=== PATIENT | male | born 1955 | race Caucasian/White ===

== ENCOUNTER 2024-06-01 00:36 | Inpatient (IN) | payer OTHER ==
[~2024-06-01] VITALS: Ht 170.2 cm
[2024-06-01] MEDS ORDERED: IBLOOD GLUCOSE TEST STRIP 1 EA TEST XX ONE (00:45)
[2024-06-01] MEDS ORDERED: LOSARTAN POTASS50 MG (01:05)
[2024-06-01] MEDS ORDERED: HYDROCODON-ACE1 EA14 (01:06)
[2024-06-01 01:09] LABS: BASOPHILS 0.4 % (0-2); EOSINOPHILS 2.8 % (0-6); LYMPHOCYTES 29.2 % (24-44); MCH 29.8 (27-36); MCHC 34.7 g/dl (30-36); MCV 85.7 fl (81-99); NEUTROPHILS 61.6 % (39-80); PLATELET COUNT 170 K/uL (140-440); RBC 5.37 M/ul (4.3-5.7); RDW 13.6 (10.5-15.0)
[2024-06-01 01:21] LABS: INR 1.09 (0.80-1.30); PROTIME 13.4 Sec (11.2-14.2)
[2024-06-01 01:28] LABS: ALBUMIN 3.4 g/dL (3.4-5.0); ALBUMIN/GLOBULIN RATIO 1.13 (1.1-2.4); ANION GAP 12.5 (7-21); BILIRUBIN, TOTAL 0.7 ng/dL (0.2-1.0); BUN/CREATININE RATIO 14.91 (6.0-28.6); CALCIUM 8.4 mg/dL (8.5-10.1); CREATININE, SERUM 1.14 mg/dL (0.70-1.30); POTASSIUM 3.5 mmol/L (3.5-5.1); PROTEIN, TOTAL 6.4 g/dL (6.4-8.2)
[2024-06-01] MEDS ORDERED: ACETAMINOPHEN 325 MG TAB PO PRN (02:00)
[2024-06-01] MEDS ORDERED: SODIUM CHLORIDE 0.9% 1,000 ML IV SCH (02:00)
[2024-06-01] MEDS ORDERED: MORPHINE SULFATE 4 MG/ML VIAL IV PRN (02:00)
[2024-06-01] MEDS ORDERED: ondansetron HCL 4 MG/2 ML VIAL IV PRN (02:00)
--- NOTE | 2024-06-01 03:20 | NUR ---
bedside report received from ed rn barbara. pt up stand pivot to ms bed, voided via urinal. pt arrived to floor at 0330, bedside report given to magali juarez. primary rn to take over pt care, call light in reach.
[2024-06-01 03:42] VITALS: BP 146/90
--- NOTE | 2024-06-01 03:45 | NUR ---
ASSESSMENT AND ADDMISSION DONE. NIH DONE WITH A RESULTS OF 3. TELE #2 PLACED ON pt. CPOX PLACED ON pt. pt DENIES ANY OTHER NEEDS AT THIS TIME. CALL LIGHT WITHIN REACH. URINAL GIVEN.
[2024-06-01 05:53] VITALS: BP 144/77
--- NOTE | 2024-06-01 05:57 | NUR ---
IN ROOM, IV FLUIDS INFUSING DIRECTED, IV SITE WNL. PT UP SBA AND VOIDED, URINE SAMPLE COLLECTED AND SENT TO LAB. PRIMARY RN ALSO IN ROOM. VS AND I&O'S COLLECTED, PT REMAINS NPO, EDUCATED AND QUESTIONS ANSWERED. BED ALARM ON AND CALL LIGHT IN REACH.
[2024-06-01 06:05] LABS: BASOPHILS 0.4 % (0-2); HEMATOCRIT 50.1 % (35.0-50.0); HEMOGLOBIN 17.3 g/dL (12.0-18.0); LYMPHOCYTES 20.8 % (24-44); MCH 29.9 (27-36); MCHC 34.5 g/dl (30-36); MCV 86.5 fl (81-99); MONOCYTES 4.7 % (0-12); NEUTROPHILS 73.1 % (39-80); PLATELET COUNT 184 K/uL (140-440); RBC 5.79 M/ul (4.3-5.7); RDW 13.9 (10.5-15.0)
[2024-06-01 06:07] LABS: BILIRUBIN, URINE NEGATIVE (negative); BLOOD/HGB, URINE NEGATIVE (Negative); KETONE, URINE NEGATIVE (Negative); LEUK ESTERASE, URINE NEGATIVE (negative); NITRITE, URINE NEGATIVE (negative); PH, URINE 7.5 (5-7)
[2024-06-01 06:23] LABS: AMPHETAMINES, URINE NEGATIVE (NEGATIVE); BARBITURATES, URINE NEGATIVE (NEGATIVE); BENZODIAZEPINE, URINE NEGATIVE (NEGATIVE); BUPRENORPHINE, URINE NEGATIVE (NEGATIVE); CANNABINOID, URINE NEGATIVE (NEGATIVE); COCAINE, URINE NEGATIVE (NEGATIVE); ECSTASY, URINE NEGATIVE (NEGATIVE); FENTANYL, URINE NEGATIVE (NEGATIVE); METHADONE, URINE NEGATIVE (NEGATIVE); OPIATES, URINE POSITIVE (NEGATIVE); OXYCODONE, URINE NEGATIVE (NEGATIVE); PHENCYCLIDINE, URINE NEGATIVE (NEGATIVE)
[2024-06-01 06:28] LABS: ALBUMIN 3.7 g/dL (3.4-5.0); ALBUMIN/GLOBULIN RATIO 1.06 (1.1-2.4); ANION GAP 12.6 (7-21); BILIRUBIN, TOTAL 0.7 ng/dL (0.2-1.0); BUN/CREATININE RATIO 14.41 (6.0-28.6); CALCIUM 8.9 mg/dL (8.5-10.1); CREATININE, SERUM 1.11 mg/dL (0.70-1.30); MAGNESIUM 2.2 mg/dL (1.8-2.4); POTASSIUM 3.6 mmol/L (3.5-5.1); PROTEIN, TOTAL 7.2 g/dL (6.4-8.2)
[2024-06-01 06:33] VITALS: BP 144/77
[2024-06-01] MEDS ORDERED: IBLOOD GLUCOSE TEST STRIP 1 EA TEST VI SCH ×2 (07:00→08:00)
--- NOTE | 2024-06-01 07:54 | NUR ---
Pt report received from SU Pimentel at 0700 hours. Pt is A&O resting supine in bed, television on. Denies needs at this time. Side rails up x4, call light in reach, white board updated.
[2024-06-01] MEDS ORDERED: ASPIRIN 81 MG CHEW PO SCH ×2 (08:00→08:22)
--- NOTE | 2024-06-01 08:22 | NUR ---
ALERT AND ORIENTED IN BED. STATES HE LIVES IN SINGLE LEVEL HOME WITH HIS , UMA. DEMOGRAPHICS OBTAINED FROM PATIENT. HIS PCP IS DR. KAROLINA HERNÁNDEZ IN [place], [place]. HE HAS NO DME AT BASELINE. HE DRIVES. DENIES FINANCIAL CONCERNS. STATES HE AND HIS ONLY HAVE MORTGAGE AND MONTHLY UTILITIES, NO OTHER DEBTS, SO THEY HAVE NO FINANCIAL CONCERNS. STATES HE HAS NO CONCERNS ABOUT RETURNING HOME AT THIS TIME, PENDING PT/OT EVALUATIONS TO VERIFY NEEDS AT TX.
--- NOTE | 2024-06-01 08:32 | NUR ---
Patient was awake and watching TV. Q6 blood sugar checked and reported to SU Abbasi. No cares were requested at the time.
[2024-06-01] MEDS ORDERED: HYDROCODON-ACE1 EAC8 PO (08:37)
[2024-06-01] MEDS ORDERED: LOSARTAN-HCTZ1 EAC2 PO (08:38)
[2024-06-01 08:43] LABS: CHOLESTEROL/HDL RATIO 2.8
[2024-06-01] MEDS ORDERED: CLOPIDOGREL BISULFATE 75 MG TAB PO SCH ×2 (09:00)
[2024-06-01] MEDS ORDERED: ENOXAPARIN SODIUM 40 MG/0.4 ML SYR SUB-Q SCH (09:00)
--- NOTE | 2024-06-01 09:15 | NUR ---
Speech therapist in with pt at about 0900 hours. Pt now up to void in bathroom. Echo will be done in about 20 minutes, then pt to MRI afterwards. MRI screening questionnaire complete.
[2024-06-01 09:19] VITALS: BP 146/90
--- NOTE | 2024-06-01 09:50 | NUR ---
Echo in with pt
--- NOTE | 2024-06-01 10:07 | NUR ---
MRI personnel in with pt to transfer to MRI. Pt IV saline locked at this time. Pt stood and transferred from bed to wheelchair with SBA only, reports some dizziness with standing. No-slip socks on.
--- NOTE | 2024-06-01 10:50 | NUR ---
REPORT RECEIVED FROM MATT BLUE. PATIENT RESTING IN RECLINER. DENIES ANY NEEDS AT THIS TIME. CALL LIGHT WITHIN REACH.
[2024-06-01 10:53] VITALS: BP 146/90
--- NOTE | 2024-06-01 11:06 | NUR ---
Patient returned from imaging. Tele battery replaced and leads reattached.
[2024-06-01] MEDS ORDERED: VITAMIN E400 UNI1 PO (11:21)
[2024-06-01] MEDS ORDERED: CENTRUM SILVER1 EAC3 PO (11:21)
[2024-06-01] MEDS ORDERED: VITAMIN D325 MCG PO (11:21)
[2024-06-01] MEDS ORDERED: VITAMIN B-121000 MCG PO (11:21)
--- NOTE | 2024-06-01 11:21 | NUR ---
MED REC COMPLETE
--- NOTE | 2024-06-01 11:45 | NUR ---
PATIENT CONTINUES TO REST IN RECLINER. DENIES ANY PAIN OR DISCOMFORT. PATIENT IS REQUESTING HIS 'S PHONE NUMBER. TAX EVALUATOR LOOKING FOR 'S PHONE NUMBER AT THIS TIME.
[2024-06-01] MEDS ORDERED: PHARMACY RENAL DOSE ADJUSTMENT 1 DOSE MISC PO SCH (12:00)
--- NOTE | 2024-06-01 12:08 | NUR ---
UR CLINICAL REVIEW: ARIS FANG, MEETS INPT FOR [facility] MEDICARE FROM OBS TO INPT 06/01/24 @ 0956 ORDER MATCHES REG NO AUTH REQUIRED PER MEDICARE RULES DC PLAN PENDING THERAPY EVALUATIONS, WOULD LIKE TO GO HOME.
--- NOTE | 2024-06-01 12:11 | NUR ---
MD IN ROOM WITH PATIENT AND AMBULING IN HATHAWAY WITH PATIENT.
[2024-06-01] MEDS ORDERED: CLOPIDOGREL75 MG PO (12:19)
[2024-06-01] MEDS ORDERED: LIPITOR40 MG PO (12:19)
[2024-06-01] MEDS ORDERED: ASPIRIN81 MG PO (12:20)
[2024-06-01] MEDS ORDERED: METFORMIN HCL500 MG PO (12:20)
--- NOTE | 2024-06-01 14:04 | NUR ---
PATIENT DISHARGED WITH . PATIENT NIH SCORE AT TIME OR DISCHARGE WAS 0. PATIENT VSS. DISCUSSED EDUCATIONS WITH PATIENT AND . IV SITE REMOVED WNL.
[2024-06-01] MEDS ORDERED: ATORVASTATIN 10 MG TAB PO SCH (17:00)
[2024-06-01] MEDS ORDERED: ATORVASTATIN 40 MG TAB PO SCH (17:00)
--- NOTE | 2024-06-02 12:05 | EKG ---
[facility] [address] [facility] [place], [place] [address] Signed Sinus rhythm with sinus arrhythmia with 1st degree AV block Otherwise normal ECG No previous ECGs available Confirmed by Hieu Celaya MD ([id number]) on 06/02/2024 12:05:36 PM Electronically Signed By: HIEU CLEAYA 06/02/24 1205 PATIENT NAME: POLALESTER HATTIE Electrocardiogram DATE OF : 55 PHYSICIAN: HIEU CELAYA REPORT #: [id number] REPORT IS CONFIDENTIAL AND NOT TO BE RELEASED WITHOUT AUTHORIZATION
== END 2024-06-01 13:55 | disposition home or self-care (01) | DRG 69 ==
LOC: ED 00:36 → MS 00:38
PROVIDERS: Family Medicine; ADMIT Internal Medicine; ATTEND Internal Medicine
DX: G45.9 Transient cerebral ischemic attack, unspecified (principal); I10 Essential (primary) hypertension; E11.40 Type 2 diabetes mellitus with diabetic neuropathy, unspecified; Z79.891 Long term (current) use of opiate analgesic; Z79.899 Other long term (current) drug therapy; E78.5 Hyperlipidemia, unspecified
CPT/HCPCS: 36415; 70450; 70496; 70498; 70551; 71045; 80053; 80061; 80307; 81003; 83036; 83735; 84484; 85025; 85610; 85730; 92610; 93005; 93010; 93306; 96372; 97161; 97165; 97535; 99285-25; A9270; G0378; J1650; J7030; Q9967

== ENCOUNTER 2024-08-16 09:53 | Day surgery (SDC) | payer MEDICARE ==
[2024-08-10 09:23] VITALS: BP 112/78
[~2024-08-16] VITALS: Ht 170.2 cm; Wt 96.4 kg
[~2024-08-16 09:53] MED LIST: ASPIRIN81 MG PO; CENTRUM SILVER1 EAC3 PO; CLOPIDOGREL75 MG PO; HYDROCODON-ACE1 EA14; HYDROCODON-ACE1 EAC8 PO; IBLOOD GLUCOSE TEST STRIP 1 EA TEST VI PRN; LACTATED RINGER'S 1,000 ML IV SCH; LIDOCAINE HCL 1% 5 ML SDV INJ ONE; LIPITOR40 MG PO; LOSARTAN POTASS50 MG; LOSARTAN-HCTZ1 EAC2 PO; METFORMIN HCL500 MG PO; VITAMIN B-121000 MCG PO; VITAMIN D325 MCG PO; VITAMIN E400 UNI1 PO
[2024-08-16 10:15] VITALS: BP 141/77
--- NOTE | 2024-08-16 11:47 | NUR ---
1105-PT UP TO RESTROOM. 1107-PT BACK TO ROOM. PT UPDATED ON SURGICAL WAIT TIME. NO OTHER NEEDS AT THIS TIME. CALL LIGHT WITHIN REACH.
--- NOTE | 2024-08-16 13:28 | NUR ---
LE 1306-PT UP TO RESTROOM. LE 1309-PT BACK TO ROOM. NO OTHER NEEDS AT THIS TIME. CALL LIGHT WITHIN REACH.
[2024-08-16] MEDS ORDERED: fentaNYL citrate 100 MCG/2 ML VIAL ONE (13:33)
[2024-08-16] MEDS ORDERED: LIDOCAINE HCL 2% 5 ML SDV ONE (13:33)
[2024-08-16] MEDS ORDERED: propofoL 200 MG/20 ML VIAL ONE (13:33)
--- NOTE | 2024-08-16 15:16 | NUR ---
08/16/24 1516 Alida Pierce 1438 PT ARRIVED IN PACU SLEEPY. ABD SOFT AND PASSING FLATUS. 1500 RESTING. REU. 151 AWAKENS TO VERBAL STIMULI. SITTING UP IN BED SIPPING ON WATER. 1513 GLASSES AND HEARING AIDES RETURNED TO PT.
[2024-08-16 15:17] VITALS: BP 119/85
--- NOTE | 2024-08-16 22:53 | EKG ---
[facility] [address] [place] [address] Signed Normal sinus rhythm Normal ECG When compared with ECG of 01-JUN-2024 01:00, No significant change was found Confirmed by Augustine Pepe MD () on 08/16/2024 10:53:17 PM Electronically Signed By: AUGUSTINE PEPE MD 08/16/24 2253 PATIENT NAME: LESTER ESCALONA Electrocardiogram DATE OF : 55 PHYSICIAN: AUGUSTINE PEPE MD REPORT #: [id number] REPORT IS CONFIDENTIAL AND NOT TO BE RELEASED WITHOUT AUTHORIZATION
--- NOTE | 2024-08-17 06:37 | OR ---
[facility] [address] [place], [place] [address] Signed DATE OF OPERATION: 08/16/2024 SURGEON: Tres Mercedes MD PREOPERATIVE DIAGNOSES: 1. Gastroesophageal reflux disease with heartburn. 2. Personal history of colonic polyps. 3. Hemorrhoids. POSTOPERATIVE DIAGNOSES: 1. Mild gastroduodenitis. 2. Mild distal gastritis. 3. Small hiatal hernia. 4. GE junction at 32 cm. 5. Minimal sigmoid diverticulosis. 6. Minimal to moderate internal external hemorrhoids. 7. 4 mm polyp at distal right colon. 8. 5 mm polyp at 50 cm in left colon. PROCEDURES: 1. EGD with CLOtest and biopsy of the duodenum, pyloric bulb, antrum and GE junction. 2. Colonoscopy with hot biopsy. ESTIMATED BLOOD LOSS: None. INDICATIONS: Damian is a 69-year-old gentleman asked to see me for both upper and lower endoscopy. He said he went through several colonoscopies when he lived in [place], [place]. He said he has had polyps removed on several occasions. He has been told to follow up every 3 to 5 years. He told me he has hemorrhoids that bother him once in a while. He does not recognize the term diverticulosis. He said he has no lower GI complaints. He said his memory is not the best having been through the [facility]. We do not have any records from [facility]. He also mentions acid reflux and heartburn. He said maybe many years ago he had an upper endoscopy, but he is not sure. His primary care provider asked him to see me with respect to the above. I had given him pamphlets on both upper and lower endoscopy. We had reviewed the nature of the two tests in the office. There is risk including, but not limited to gas bloating, crampy abdominal pain, bleeding, perforation requiring surgery, and missed diagnosis. We also reviewed the written instructions for our bowel prep line by line. Also, he had a TIA in May and other medical issues Electronically Signed By: TRES MERCEDES MD 08/17/24 0637 PATIENT NAME: DAMIAN ESCALONA OPERATIVE REPORT DATE OF : 55 REPORT #: [id number] PHYSICIAN: TRES MERCEDES MD PCP: ANURAG HERNÁNDEZ MD REPORT IS CONFIDENTIAL AND NOT TO BE RELEASED WITHOUT AUTHORIZATION [facility] [address] [place] [id number] Signed including his obesity, neuropathy and hypertension and so forth. Consequently, we asked for monitored anesthesia care propofol infusion. He also has to use daily hydrocodone. He understands an adult person has to take him home afterwards. He had expressed understanding and wished to proceed. DESCRIPTION OF PROCEDURE: Damian was taken into our endoscopy suite and placed in a supine semi-recumbent position. He was given monitored anesthesia care propofol infusion per our nurse pharmaceutical engineer. A bite block was utilized for the case. The posterior oropharynx was anesthetized with lidocaine spray. The adult gastroscope was introduced and advanced under direct visualization of camera. The duodenum was unremarkable. We took a biopsy of the duodenum because of the history of acid reflux and his heartburn. He did have just a little inflammation in the pyloric bulb in the stomach. We took biopsies from both the pyloric bulb and the antrum. An additional biopsy came out of the antrum for pathologic review. Upon retroflexion of scope we could easily see a small hiatal hernia. We did not measure that today, but it is probably just two or 3 cm in length. The GE junction is about 32 cm. He had one tongue of tissue coming up the side a little farther than the rest. We went ahead and took a couple of biopsies of this area to evaluate for esophagitis versus Lee's mucosa. Otherwise, the middle and upper esophagus were unremarkable. After this the gas was suctioned out, the gastroscope removed. Damian tolerated the upper endoscopy quite well. Damian was then rotated into the left lateral decubitus position. He was maintained on propofol infusion per our nurse pharmaceutical engineer. A digital rectal exam was performed. He does have external hemorrhoids with some hypertrophic skin. He had good sphincter tone. There were no masses. The adult colonoscope was introduced and advanced all the way around into the cecum under direct visualization of camera. It took a little extra propofol and abdominal compression to get into the cecum itself. His prep was good. The scope was slowly withdrawn. We took out a couple of polyps as mentioned above with hot biopsy forceps. He does have some diverticula in the sigmoid colon. They were minimal in size, minimal number and scattered about. In the rectum upon retroflexion of scope he does have minimal to moderate internal hemorrhoid columns as well. After this, the gas was suctioned out, colonoscope removed. Damian tolerated his lower endoscopy quite well. RECOMMENDATIONS: I will see Damian back in my office in 7 to 14 days to review his results. Tres Mercedes MD Electronically Signed By: TRES MERCEDES MD 08/17/24 0637 PATIENT NAME: DAMIAN ESCALONA OPERATIVE REPORT DATE OF : 55 REPORT #: [id number] PHYSICIAN: TRES MERCEDES MD PCP: ANURAG HERNÁNDEZ MD REPORT IS CONFIDENTIAL AND NOT TO BE RELEASED WITHOUT AUTHORIZATION [facility] [address] [place] [address] Signed [facility] /[id number] cc: MD Anurag Smith DO Copies: TRES MERCEDES MD ~ Electronically Signed By: TRES MERCEDES MD 08/17/24 0637 PATIENT NAME: DAMIAN ESCALONA OPERATIVE REPORT DATE OF : 55 REPORT #: [id number] PHYSICIAN: TRES MERCEDES MD PCP: ANURAG HERNÁNDEZ MD REPORT IS CONFIDENTIAL AND NOT TO BE RELEASED WITHOUT AUTHORIZATION
--- NOTE | 2024-08-29 09:22 | PATH ---
[facility] [address] [place], [place] [address] Signed SPECIMEN(S): A DUODENAL BIOPSY SPECIMEN(S): B DUODENAL BULB BIOPSY SPECIMEN(S): C ANTRUM BIOPSY SPECIMEN(S): D GE JUNCTION BIOPSY SPECIMEN(S): E DISTAL ASCENDING COLON POLYP SPECIMEN(S): F DESCENDING COLON POLYP AT 50 CM SPECIMEN SOURCE: A. DUODENAL BIOPSY B. DUODENAL BULB BIOPSY C. ANTRUM BIOPSY D. GE JUNCTION BIOPSY E. DISTAL ASCENDING COLON POLYP F. DESCENDING COLON POLYP AT 50 CM CLINICAL HISTORY: GERD, history of polyps. Postop: Gastritis, hiatal hernia, esophagitis external hemorrhoids, diverticulosis, polyps x 2 FINAL PATHOLOGIC DIAGNOSIS: A. Duodenal biopsy: - Benign duodenal mucosa, negative for specific diagnostic abnormality. B. Duodenal bulb biopsy: - Benign duodenal mucosa, negative for specific diagnostic abnormality. C. Antrum biopsy: - Benign gastric mucosa with mild superficial chronic gastritis. - Negative for evidence of Helicobacter organisms on immune-stained sections. D. GE junction biopsy: - Esophageal and gastric mucosa with specialized intestinal (goblet cell) metaplasia, negative for dysplasia. E. Distal ascending colon polyp: - Serrated polyp/adenoma (one fragment). F. Descending colon polyp at 50 cm: - Tubular adenoma (one fragment). JVR:bridgette MICROSCOPIC EXAMINATION: Histologic sections of all submitted blocks are examined by light microscopy. These findings, together with the gross examination, support the pathologic diagnosis. A Helicobacter pylori immunostain is performed with appropriate positive and PATIENT NAME: LESTER MAK PATHOLOGY DATE OF : 55 REPORT #: [id number] PHYSICIAN: YAIMA SPANGLER PCP: KAROLINA HERNÁNDEZ MD REPORT IS CONFIDENTIAL AND NOT TO BE RELEASED WITHOUT AUTHORIZATION [facility] [address] [place], [place] [address] Signed negative controls on block C1 and is negative for organisms. JVR:[facility] GROSS DESCRIPTION: A. The specimen, labeled and designated "Mak, W, duodenal biopsy," is received in formalin and consists of one horn soft tissue fragment, 0.4 cm. Entirely submitted in (A1). B. The specimen, labeled and designated "Mak, W, duodenal bulb biopsy," is received in formalin and consists of one horn soft tissue fragment, 0.3 cm. Entirely submitted in (B1). C. The specimen, labeled and designated "Mak, W, antrum biopsy," is received in formalin and consists of one horn soft tissue fragment, 0.5 cm. Entirely submitted in (C1). D. The specimen, labeled and designated "Mak, W, GE junction biopsy," is received in formalin and consists of two horn soft tissue fragments, ranging from 0.2-0.3 cm. Entirely submitted in (D1). E. The specimen, labeled and designated "Mak, W, distal ascending colon polyp," is received in formalin and consists of one horn soft tissue fragment, 0.3 cm. Entirely submitted in (E1). F. The specimen, labeled and designated "Mak, W, descending colon polyp at 50 cm," is received in formalin and consists of one horn soft tissue fragment, 0.2 cm. Entirely submitted in (F1). AB (under the direct supervision of a pathologist) The Gross Description was prepared using a voice recognition system. The report was reviewed for accuracy; however, sound-alike word errors, addition and/or deletions may occur. If there is any question about this report, please contact Client Services. ADDITIONAL NOTES: Immunohistochemical and/or in situ hybridization studies were performed on this case with the appropriate positive controls that react as expected. This test was developed and its performance characteristics determined by [facility]. It has not been cleared or approved by the U.S. Food and Drug Administration. The FDA has determined that such clearance or approval is not necessary. This test is used for clinical purposes. It should not be regarded as investigational or for research. [facility] is certified under the Clinical Laboratory Improvement Amendments of 1988 (CLIA) as qualified to perform high complexity clinical laboratory testing. This assay has not been validated for specimens that have been decalcified. PATIENT NAME: LESTER MAK PATHOLOGY DATE OF : 55 REPORT #: [id number] PHYSICIAN: YAIMA SPANGLER PCP: KAROLINA HERNÁNDEZ MD REPORT IS CONFIDENTIAL AND NOT TO BE RELEASED WITHOUT AUTHORIZATION [facility] [address] [place], [place] [address] Signed PERFORMING LABORATORY: Technical component was performed by [facility], [address] [place] [id number] (CLIA# [id number]). Professional interpretation was performed by [facility], [address] [place] [address] Ave. [address]ENU Villanueva [address] (CLIA#: [id number]). Diagnostician: Matt Lomax MD Pathologist Electronically Signed 08/29/2024 Copies: ~ PATIENT NAME: LESTER MAK PATHOLOGY DATE OF : 55 REPORT #: [id number] PHYSICIAN: YAIMA PATHOLOGY PCP: KAROLINA HERNÁNDEZ MD REPORT IS CONFIDENTIAL AND NOT TO BE RELEASED WITHOUT AUTHORIZATION
== END 2024-08-16 15:27 | disposition home or self-care (01) ==
LOC: DS 09:53
PROVIDERS: ATTEND Colon & Rectal Surgery
PROC: 0DB48ZX Excision of Esophagogastric Junction, Via Natural or Artificial Opening Endoscopic, Diagnostic (ICD-10-PCS; 2024-08-16)
PROC: 0DBG8ZZ Excision of Left Large Intestine, Via Natural or Artificial Opening Endoscopic (ICD-10-PCS; 2024-08-16)
PROC: 0DBF8ZZ Excision of Right Large Intestine, Via Natural or Artificial Opening Endoscopic (ICD-10-PCS; 2024-08-16)
PROC: 0DB98ZX Excision of Duodenum, Via Natural or Artificial Opening Endoscopic, Diagnostic (ICD-10-PCS; principal; 2024-08-16 11:45)
PROC: 0DB68ZX Excision of Stomach, Via Natural or Artificial Opening Endoscopic, Diagnostic (ICD-10-PCS; 2024-08-16 11:45)
DX: Z12.11 Encounter for screening for malignant neoplasm of colon (principal); D12.2 Benign neoplasm of ascending colon; D12.4 Benign neoplasm of descending colon; K64.8 Other hemorrhoids; K64.4 Residual hemorrhoidal skin tags; K29.30 Chronic superficial gastritis without bleeding; K57.30 Diverticulosis of large intestine without perforation or abscess without bleeding; K29.90 Gastroduodenitis, unspecified, without bleeding; K44.9 Diaphragmatic hernia without obstruction or gangrene; K21.9 Gastro-esophageal reflux disease without esophagitis; G62.9 Polyneuropathy, unspecified; E66.9 Obesity, unspecified; Z68.34 Body mass index [BMI] 34.0-34.9, adult; Z86.0100 Personal history of colon polyps, unspecified; Z79.82 Long term (current) use of aspirin; Z79.02 Long term (current) use of antithrombotics/antiplatelets; Z79.899 Other long term (current) drug therapy; Z86.73 Personal history of transient ischemic attack (TIA), and cerebral infarction without residual deficits
CPT/HCPCS: 00813; 36415; 87077; 88305; 88342; 93005; 93010; J2003; J2704; J3010; J7121